=== PATIENT | female | born 1960 | race Caucasian/White ===

== ENCOUNTER → 2018-02-01 | Outpatient (CLI) | payer OTHER ==
--- NOTE | 2018-02-01 13:53 | EXE ---
[place] [address] STRESS ECHOCARDIOGRAM Name: MONTSERRAT WELSH Room: [facility]#: [id number] Admission: 02/01/18 Attend Phys: Gabriele Benavides, Discharge: Date of : 56 Date of Service: 02/01/18 1352 Report #: [id number] THIS REPORT FOR: //name// APPROVED REPORT Study performed: 02/01/2018 11:00:55 Exam: Stress Echocardiogram Indication: CAD , ABN EKG Patient Location: Out-Patient Stress Nurse: Vanna Dorado RN Supervising Physician: Harvinder Agustin MD Status: routine Ht: 5 ft 2 in HR: 70 bpm BP: 143/97 mmHg Medical History Cardiac Risk Factors: HTN,, Hyperlipidemia Procedure The patient underwent an Exercise Stress Test using the Chauncey Protocol. Blood pressure, heart rate, and EKG were monitored. An Echocardiogram was performed by mold tooling technician in four stages in quad fashion. At peak stress, four selected images were obtained and placed side by side with resting images for comparison. Stress Test Details Stress Test: Exercise stress testing was performed using a Chauncey protocol. HR Resting HR: 70 bpm Max Heart Rate (APMHR): 161 bpm Max HR Achieved: 150 bpm Target HR (85% APMHR): 136 bpm % of APMHR: 93 Recovery HR: 92 bpm HR response to stress: Normal HR response to stress BP Resting BP: 143/97 mmHg Max BP: 205/87 mmHg Recovery BP: 130/90 mmHg ECG Resting ECG: Sinus Rhythm Stress ECG: [place] [address] STRESS ECHOCARDIOGRAM Name: ANITHAMONTSERRAT Room: [facility]#: [id number] Admission: 02/01/18 Attend Phys: Gabriele Benavides, Discharge: Date of : 56 Date of Service: 02/01/18 1352 Report #: [id number] ST Change: Horizontal ST depression Maximum ST Deviation: 0.5 mm Arrhythmia: None Recovery ECG: Sinus Rhythm Recovery ST Change: Horizontal ST depression Recovery ST Deviation: 0.5 mm Recovery Arrhythmia: None Clinical Reason for Termination: Completed protocol, Dyspnea, Maximal effort Exercise duration: 8 min 30 sec Highest Stage Achieved: Stage 3: 3.4 mph at 14% grade. Exercise capacity: 10.16 METs The patient tolerated stated Chauncey protocol without significant symptoms. Stress ECG Conclusion The baseline 12-lead EKG showed sinus rhythm without significant ST segment abnormality. EKGs obtained during and post exercise stress show sinus rhythm and sinus tachycardia with 0.[address] segment depression noted in the inferior leads that does not meet diagnostic criteria for stress-induced ischemia. Pre-Stress Echo The resting Echocardiogram showed normal left ventricular contractility with an estimated Ejection Fraction of about 55-60%. Post-Stress Echo The stress Echocardiogram showed normal left ventricular contractility with an estimated Ejection Fraction of about >70%. Clinical No clinical or ECG evidence for ischemia. Conclusion Clinical Response: Non-ischemic Exercise Capacity: Average Stress ECG Response: Non-ischemic Stress Echo Images: [place] [address] STRESS ECHOCARDIOGRAM Name: MONTSERRAT WELSH Room: [facility]#: [id number] Admission: 02/01/18 Attend Phys: Gabriele Benavides, Discharge: Date of : 56 Date of Service: 02/01/18 1352 Report #: [id number] Other Information Study Quality: Good <ELECTRONICALLY SIGNED> By: Harvinder Agustin MD, FACC 02/01/181351 51 51 Harvinder Agustin MD, FACC /INF
== END ==
LOC: M.CRD 10:51
DX: I25.10 Atherosclerotic heart disease of native coronary artery without angina pectoris (principal); R94.31 Abnormal electrocardiogram [ECG] [EKG]